=== PATIENT | female | born 2000 | race African-American/Black ===

== ENCOUNTER 2025-05-01 11:13 | Emergency (ER) | payer MEDICAID ==
[2025-05-01 11:16] VITALS: PULSE 96; RESP 14; O2SAT 98
== END 2025-05-01 12:00 | disposition left against medical advice (07) ==
LOC: ER 11:13
DX: T78.40XA Allergy, unspecified, initial encounter (principal); Z53.21 Procedure and treatment not carried out due to patient leaving prior to being seen by health care provider; X58.XXXA Exposure to other specified factors, initial encounter; Y93.89 Activity, other specified; Y92.89 Other specified places as the place of occurrence of the external cause; Y99.8 Other external cause status
CPT/HCPCS: 99281